=== PATIENT | male | born 1990 ===

== ENCOUNTER 2021-11-05 12:28 | Emergency (ER) | payer SELFPAY ==
[~2021-11-05] VITALS: Ht 165.1 cm; Wt 58.9 kg
[2021-11-05 12:37] VITALS: BP 99/69
[2021-11-05] MEDS ORDERED: TETRACAINE 0.5% OPHTH SOLN 4 ML BTL (SINGLE DOSE ONLY) OU ONE (13:00)
[2021-11-05] MEDS ORDERED: BSS 15 ML IR ONE (13:00)
[2021-11-05] MEDS ORDERED: FLUORESCEIN (FLUOR-I-STRIPS) 1 MG STRP OU ONE (13:00)
--- NOTE | 2021-11-05 13:39 | ED EENT ---
History of Present Illness General Chief Complaint: Eye Problems Stated Complaint: L EYE INJ Nursing Triage Note: pt ambulatory to room. triage done with use of reconcilement clerk. pt states he was at work, working with metal and tried to put a nail through metal. pt states the nail bounced off of the metal and hit his left eye. pt states it did not stick in his eye or anything, it just hit his eye and bounced out. Source: patient, reconcilement clerk Exam Limitations: language barrier History of Present Illness Date Seen by Provider: Nov 05, 2021 Time Seen by Provider: 12:45 Initial Comments This 31-year-old gentleman presents emergency room with injury to the left lateral eye. He was hammering a nail into some siding when the nail bounced off and struck him on the sclera of the left eye. He has injury several millimeters in width with hyperemia and erythema. He denies any changes in vision. He denies any diplopia with extraocular movements. He does have some pain with eye movement and blinking. He denies any other injury. There is no obvious foreign body. There does seem to be tissue disruption of the sclera lateral to the cornea. Patient is noted to fall asleep easily during lulls in our conversation. He drinks alcohol daily. He reports drinking 2 or 3 beers today and then working in the heat. He is therefore tired. He denies any other substance use. He does wake easily and his mentation seems brisk. A video tele reconcilement clerk was used for the interview and exam. 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 Allergies and Home Medications Allergies Coded Allergies: No Known Drug Allergies (Unverified , 11/05/21) Patient Home Medication List Home Medication List Reviewed: Yes Review of Systems Review of Systems Constitutional: no symptoms reported Eyes: See HPI Ears: No Symptoms Reported Nose: no symptoms reported Mouth: no symptoms reported Musculoskeletal: no symptoms reported Skin: no symptoms reported Neurological: See HPI Past Xaroqia-Yvgfqk-Grxmqe Hx Patient Social History Tobacco Use?: No Smoking Status: Former Smoker Use of E-Cig and/or Vaping dev: No Substance use?: No Alcohol Use?: Yes Alcohol Frequency: Daily Immunizations Up To Date Influenza Vaccine Up-to-Date: No; Not Current Past Medical History Surgeries: No Respiratory: No Cardiac: No Neurological: No Reproductive Disorders: No Genitourinary: No Gastrointestinal: No Musculoskeletal: No Endocrine: No HEENT: No Cancer: No Psychosocial: Yes (Daily alcohol consumption) Integumentary: No Physical Exam Vital Signs Vital Signs - First Documented 11/05/21 12:37 Temp 36.1 Pulse 94 Resp 18 B/P (MAP) 99/69 (79) Pulse Ox 98 Height, Weight, BMI Height: '" Weight: lbs. oz. kg; 21.00 BMI Method: General Appearance: WD/WN, no apparent distress, other (Somnolent) Eyes: left eye other (Hyperemia and erythema of the left lateral sclera with p ossible tissue disruption. No obvious foreign bodies. Fluorescein exam reveals a shallow laceration several millimeters long lateral to the left cornea. This seems to extend onto the surface of the cornea with either a shallow laceration or an abrasion. 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, no motor/sensory deficits, alert, normal mood/affect, oriented x 3, other (Somnolent when allowed to rest) Skin: normal color, warm/dry Progress/Results/Core Measures Results/Orders My Orders Orders - PER LINDSEY MD Tetracaine 0.5% Ophth [place] Sdv (Tetracai (11/05/21 13:00) Fluorescein Strips (Insmi-X-Pjxngs) (11/05/21 13:00) Balanced Salt Irrigation Soln (Bss Irrig (11/05/21 13:00) Medications Given in ED Current Medications Medications Dose Ordered Sig/William Route Start Time Stop Time Status Last Admin Dose Admin Balanced Salt Solution 15 ml ONCE ONCE IR 11/05/21 13:00 11/05/21 13:01 DC 11/05/21 13:15 15 ML Fluorescein Sodium 1 mg ONCE ONCE OU 11/05/21 13:00 11/05/21 13:01 DC 11/05/21 13:15 1 MG Tetracaine HCl 4 ml ONCE ONCE OU 11/05/21 13:00 11/05/21 13:01 DC 11/05/21 13:15 4 ML Vital Signs/I&O 11/05/21 12:37 Temp 36.1 Pulse 94 Resp 18 B/P (MAP) 99/69 (79) Pulse Ox 98 Blood Pressure Mean: 79 Progress Progress Note : Progress Note Fluorescein exam demonstrated uptake in an irregular linear fashion lateral to the left cornea suggestive of a shallow laceration. This extended onto the surface of the cornea with the appearance of either a shallow laceration or an abrasion with bright uptake of fluorescein. No foreign bodies were observed. No oozing of vitreous humor was observed. Case was discussed with Dr. Moore at [facility]. She recommends referral to her clinic today for dilation, retinal exam, rule out of penetrating injury, and accurate measurement of intraocular pressures. I discussed the plan for referral at length with the patient and his housekeeping supervisor hotel via the reconcilement clerk. They will be going directly from the ER to the eye care clinic. Departure Impression Primary Impression: Corneal laceration of left eye Qualified Codes: S05.32XA - Ocular laceration without prolapse or loss of intraocular tissue, left eye, initial encounter Additional Impression: Scleral laceration of left eye Qualified Codes: S05.32XA - Ocular laceration without prolapse or loss of intraocular tissue, left eye, initial encounter Disposition: 01 HOME, SELF-CARE Condition: Stable Departure-Patient Inst. Decision time for Depature: 13:38 Referrals: MEIR BOSE OD NO,LOCAL PHYSICIAN (PCP) Primary Care Physician Patient Instructions: Corneal Abrasion ED Add. Discharge Instructions: Go directly to [facility] for consultation with Dr. Moore. You may use the saline eye drops to moisten your eye if it becomes dry. See address for the clinic below. All discharge instructions reviewed with patient and/or family. Voiced understanding. PER LINDSEY MD Nov 05, 2021 13:39
== END 2021-11-05 13:45 | disposition home or self-care (01) ==
LOC: ER 12:31
DX: S05.32XA Ocular laceration without prolapse or loss of intraocular tissue, left eye, initial encounter (principal); Z87.891 Personal history of nicotine dependence; W20.8XXA Other cause of strike by thrown, projected or falling object, initial encounter; Y93.89 Activity, other specified
CPT/HCPCS: 99281